=== PATIENT | female | born 2000 | race American Indian/Alaskan Native ===

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

== ENCOUNTER 2020-03-30 16:46 | Emergency (ER) | payer OTHER, MEDICAID ==
[2020-03-30 17:01] VITALS: BP 120/96
[2020-03-30] MEDS ORDERED: IBUPROFEN 800 MG TAB PO ONE (17:09)
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
--- NOTE | 2020-03-30 18:47 | Cat Scan Report ---
CT CHEST WITHOUT CONTRAST INDICATION / CLINICAL INFORMATION: Chest pain TECHNIQUE: Axial CT images were obtained through the chest without contrast. All CT scans at this location are p erformed using CT dose reduction for ALARA by means of automated exposure control. COMPARISON: None available. FINDINGS: HEART: No significant abnormality. THORACIC AORTA: No significant abnormality. MEDIASTINUM and LAKSHMI: No significant abnormality. LUNGS: No acute air space or interstitial disease. PLEURA: No significant pleural effusion. No pneumothorax. ADDITIONAL FINDINGS: Borderline axillary adenopathy. Persistent thymus.. UPPER ABDOMEN: No significant abnormality. SKELETAL SYSTEM: No significant abnormality. IMPRESSION: 1. No significant abnormality. Signer Name: Rizwan Zafar MD Signed: 03/30/2020 6:42 PM Workstation Name: [id number]
--- NOTE | 2020-03-30 19:04 | Cat Scan Report ---
CT ABDOMEN AND PELVIS WITHOUT CONTRAST INDICATION / CLINICAL INFORMATION: low abd pain/ SB sign. TECHNIQUE: Axial CT images were obtained through the abdomen and pelvis without IV contrast. All [facility] scans at [facility] are performed using CT dose reduction for ALARA by means of automated exposure control. COMPARISON: CT chest 03/30/2020 FINDINGS: LOWER CHEST: No significant abnormality. HEPATOBILIARY: No significant abnormality. PANCREAS/SPLEEN/ADRENALS: No significant abnormality. GENITOURINARY: No significant abnormality. GASTROINTESTINAL/MESENTERY: Unremarkable appendix. No bowel obstruction or inflammation. No free air or significant free fluid. RETROPERITONEUM: No significant adenopathy. REPRODUCTIVE ORGANS: No significant abnormality. VASCULAR: No significant abnormality. BODY WALL: No significant abnormality. SKELETAL SYSTEM: No significant abnormality. IMPRESSION: 1. No acute abdominopelvic abnormality. Signer Name: Clemente Ramirez MD Signed: 03/30/2020 7:00 PM Workstation Name: [id number]
== END 2020-03-30 21:34 | disposition home or self-care (01) ==
LOC: ED 16:46
DX: S29.011A Strain of muscle and tendon of front wall of thorax, initial encounter (principal); S20.212A Contusion of left front wall of thorax, initial encounter; F32.9 Major depressive disorder, single episode, unspecified; J45.909 Unspecified asthma, uncomplicated; F17.200 Nicotine dependence, unspecified, uncomplicated; F12.10 Cannabis abuse, uncomplicated; Z79.899 Other long term (current) drug therapy; V49.49XA Driver injured in collision with other motor vehicles in traffic accident, initial encounter; Y93.89 Activity, other specified; Y92.488 Other paved roadways as the place of occurrence of the external cause; Y99.8 Other external cause status
CPT/HCPCS: 36415; 71250; 74176; 84703